=== PATIENT | female | born 1985 | race Caucasian/White ===

== ENCOUNTER 2022-06-20 10:00 | Inpatient (IN) ==
[2022-06-20] MEDS ORDERED: SODIUM CHLORIDE 0.9% 1000ML 1,000 ML IV ONE ×2 (10:11→10:30)
[2022-06-20] MEDS ORDERED: FAMOTIDINE 20MG IV PUSH 20 MG/5 ML SYR IV STA (10:11)
--- NOTE | 2022-06-20 10:15 | Emergency Department Note ---
Impression & Plan Hypertensive emergency, Elevated troponin, Acute dehydration, Dermatitis of face ED Provider Note Name: YOHANNES NICHOLS Age: 36 Sex: F Arrives Via: Walk-In Informant: Patient ED Provider: Tad Florian MD Chief Complaint: Allergic reaction Impression: As per impressions above Medical Decision Making: Healthy 36-year-old female arrives for evaluation of reported allergic reaction. Patient states that she used a facial cream about a week ago and had a significant facial allergic reaction. She was started on a steroid symptoms got better which she finished about a day ago. Symptoms seem to return again today with lip swelling. She taken Benadryl and it mostly resolved. She was seen at urgent care who advised she come to the ER for evaluation. Rash is much like a dermatitis and has no current lip swelling but she is quite dehydrated by examination. She is also noted to be significantly tachycardic and hypertensive. She was given 2 L normal saline for the heart rate and came to the 120s from the 150s. She was also given 2 rounds of labetalol 10 mg IV for blood pressure greater than 200. Blood pressure did come down to 190 which is roughly 20% of highest blood pressure. At this point labs that started returning which shows a moderately elevated troponin. EKG is unremarkable other than she is tachycardic. I suspect that hypertension tachycardia may be steroid related however with the mildly bumped troponin patient follow-up available as she is from out of town I do not think that discharging at this point would be safe. Hospitalist was consulted for further management. Given she has no current significant allergic findings we will hold off on steroids until evaluated by hospitalist for further input. As for the elevated troponin she is completely asymptomatic from a chest heart lung perspective I do not feel that getting a CT angio would be indicated at this time nor is her indication for starting heparin. Triage/Nursing Notes reviewed by Me Differentials:Allergic reaction, dermatitis, cellulitis, hypertensive emergency, cardiomyopathy, congestive failure, palpitations, a flutter/A-fib amongst many other pathologies considered Vital Signs: reviewed and remarkable for tachycardia and hypertension Interventions: 2 L normal saline IV, Pepcid IV, Bentyl 10 mg IV x2 Labs:Reviewed and remarkable for mildly elevated troponin EKG:Home-improvement interpretation. Indication palpitations. Sinus tachycardia at 137 bpm QTc of 456. There is no ectopy nor ischemia. No previous for comparison Cardiac/Tele Monitoring: Cardiac Monitoring: An Order was placed for continuous cardiac monitoring. The monitor shows a rate of 120 with a sinus tach rhythm. Consults:Dr Jonny Bernal hospitalist Plan: Disposition:Hospitalization. Condition: Good History of Present Illness:36-year-old female arrives for evaluation of allergic reaction. Patient with a history of having used a facial cream little over a week ago and then having allergic localized reaction. She been on steroids which she stopped about 2 days ago. Notes worsening hives this morning. Was seen at urgent care who advised to come to the ER. Patient did have facial swelling and lip swelling for which she had taken Benadryl prior to arrival. She notes lip swelling is already improving. She does feel bit weak and tremulous. Denies any chest pain, shortness of breath, syncope, abdominal pain, nausea, vomiting, leg swelling, calf pain or other concerning signs or symptoms denies any history of DVT or PE. She did recently travel and is on a control. No family history of DVT or PE. Past History:None Home Medications:Birthcontrol Allergies:nkda Vitals:Blood Pressure: 231/140, Pulse 150, RR 20, T 37.2C, O2 98% on RA Physical Exam: GENERAL: Patient is anxious appearing and in mild distress. EYES: No scleral icterus, unremarkable pupils. ENT: Mucous membranes moist, no nasal congestion. NECK: No masses appreciated, nomeningismus, trachea is midline. RESPIRATORY: No dyspnea. Clear to auscultation and equal bilaterally. No wheeze, no rhonchi. CARDIOVASCULAR: Tachy.No murmurs, rubs, gallops appreciated. GASTROINTESTINAL: Abdomen soft, non-tender, no peritonitis.Bowel sounds positive.No masses appreciated. BACK: No midline tenderness, no CVA tenderness EXTREMITIES: Normal motion all extremities, no cyanosis, no edema. NEUROLOGIC: Alert and oriented, no acute motor or sensory deficits, no focal weakness, cranial nerves grossly intact. SKIN: No rash, no jaundice, no diaphoresis. Hives over face with dry cracked lips. PSYCH: Appropriate GCS: 15 ED Course: Times/Reassessments: Heart rate did start improving though remains significantly hypertensive. Agreeable to hospitalization Tad Florian MD Past Med/Surg History Medical History (Updated 06/20/22 @ 14:50 by Tata Diaz MD, PhD) LVH (left ventricular hypertrophy) No significant past medical history Surgical History (Updated 06/20/22 @ 13:12 by Ghislaine Lee PA-C) History of wisdom tooth extraction Family History (Updated 06/20/22 @ 13:13 by Ghislaine Lee PA-C) Family/Other No problems noted. Father Hypertension Social History (Updated 06/20/22 @ 13:13 by Ghislaine Lee PA-C) Smoking Status: Former smoker Hx Alcohol Use: Yes Alcohol Intake Frequency: Monthly or Less Hx Substance Use: No Preferred Language: Emir[place] Feels Safe at Home: Yes Allergies Allergies Allergy/AdvReac Type Severity Reaction Status Date / Time shellfish derived Allergy mouth Verified 06/20/22 13:11 tingling Home Meds Home Medications Medication Instructions Recorded Confirmed diphenhydramine HCl 25 mg tablet 25 mg PO TID PRN Allergies 06/20/22 06/20/22 levonorgestrel 0.15 mg-ethinyl 1 tab PO DAILY 06/20/22 06/20/22 estradiol 0.03 mg tablet (Altavera (28)) Results & Data (ED) Vital Signs Vital Signs - 24 hr 06/20/22 10:06 06/20/22 10:30 06/20/22 10:28 Temperature 37.2 C Temperature Source Oral Pulse Rate 157 H 128 H Pulse Rate [Apical] 124 H Respiratory Rate 22 17 Respiratory Effort / Characteristics Non-Labored Spontaneous Non-Labored Spontaneous Respiratory Depth Normal Normal Blood Pressure 231/148 H Blood Pressure [Right Arm] 193/162 H Blood Pressure Mean 175 Blood Pressure Mean [Right Arm] 172 Pulse Oximetry 100 97 Oxygen Delivery Method Room Air Room Air Sepsis New/Unexplained Change in Mental Status N/A Sepsis Action Taken by Nursing No Action Required 06/20/22 11:34 06/20/22 12:24 06/20/22 12:44 Temperature Temperature Source Pulse Rate Pulse Rate [Apical] 118 H 112 H 113 H Respiratory Rate 18 16 18 Respiratory Effort / Characteristics Non-Labored Respiratory Depth Normal Blood Pressure Blood Pressure [Right Arm] 201/136 H 180/135 H 198/135 H Blood Pressure Mean Blood Pressure Mean [Right Arm] 157 150 156 Pulse Oximetry 95 96 96 Oxygen Delivery Method Room Air Room Air Sepsis New/Unexplained Change in Mental Status Sepsis Action Taken by Nursing 06/20/22 13:37 06/20/22 14:31 Temperature Temperature Source Pulse Rate 85 Pulse Rate [Apical] 117 H Respiratory Rate 18 Respiratory Effort / Characteristics Non-Labored Respiratory Depth Normal Blood Pressure Blood Pressure [Right Arm] 194/121 H Blood Pressure Mean Blood Pressure Mean [Right Arm] 145 Pulse Oximetry 98 Oxygen Delivery Method Room Air Sepsis New/Unexplained Change in Mental Status Sepsis Action Taken by Nursing Laboratory Data 06/20/22 10:18 06/20/22 10:18 Lab Results 06/20/22 06/20/22 06/20/22 Range/Units 10:18 10:18 10:18 WBC 11.08 H (4.8-10.8) K/ul RBC 5.21 (4.20-5.40) M/uL Hgb 16.1 H (12.0-16.0) g/dl Hct 45.9 (37.0-47.0) % MCV 88.1 (80.0-100.0) fL MCH 30.9 (25.0-34.0) pg MCHC 35.1 (32.0-36.0) g/dL RDW Std Deviation 38.7 (36.4-46.3) fL RDW Coeff of [place] 11.9 (11.5-14.5) % Plt Count 274 (130-400) K/uL MPV 11.2 (9.4-12.4) fL Immature Gran % (Auto) 0.5 % Neut % (Auto) 66.3 % Lymph % (Auto) 26.6 % Ogle % (Auto) 5.4 % Eos % (Auto) 0.6 % Baso % (Auto) 0.6 % Neut # (Auto) 7.34 H (1.40-6.50) K/uL Lymph # (Auto) 2.95 (1.2-3.4) K/uL Ogle # (Auto) 0.60 H (0.11-0.59) K/uL Eos # (Auto) 0.07 (0-0.50) K/uL Baso # (Auto) 0.07 (0-0.2) K/uL Immature Gran # (Auto) 0.05 (0.01-0.20) K/uL Sodium 138 (136-145) mmol/L Potassium 3.5 (3.5-5.1) mmol/L Chloride 102 (98-107) mmol/L Carbon Dioxide 23 (21-32) mmol/L Anion Gap 13 H (3-11) BUN 9 (6-23) mg/dl Creatinine 0.71 (0.6-1.2) mg/dl Est Cr Clr Drug Dosing 154.7 ml/min Est GFR ( Amer) 128.8 ml/min Est GFR (Non-Af Amer) 111.1 ml/min BUN/Creatinine Ratio 12.7 (10-20) Glucose 233 H (70-99(Fasting)) mg/dl Calcium 9.3 (8.6-10.3) mg/dl Magnesium 1.8 (1.7-2.4) mg/dl Total Bilirubin 1.0 (0.2-1.0) mg/dl Direct Bilirubin 0.2 (0-0.2) mg/dl AST 17 (13-39) U/L ALT 23 (7-52) U/L Alkaline Phosphatase 71 (34-104) U/L Troponin I High Sens 23.9 H (0-14) pg/ml Total Protein 7.3 (6.0-8.3) gm/dl Albumin 4.3 (3.4-5.0) gm/dl TSH 0.577 (0.300-4.500) uIu/ml Urine Color Urine Appearance (Clear) Urine pH (4.5-7.5) Ur Specific [place] (1.000-1.030) Urine Protein (Negative) Urine Glucose (UA) (Negative) Urine Ketones (Negative) Urine Blood (Negative) Urine Nitrite (Negative) Urine Bilirubin (Negative) Urine Urobilinogen (Negative) Ur Leukocyte Esterase (Negative) Urine WBC (Auto) (0-5) /hpf Urine RBC (Auto) (0-4) /hpf U Hyaline Cast (Auto) (0-5) /lpf U Epithel Cells (Auto) (0-5) /lpf Urine Bacteria (Auto) (Negative) Urine Test (Negative) SARS-CoV-2, RNA, NAAT (NEGATIVE) 06/20/22 06/20/22 06/20/22 Range/Units 11:56 11:56 13:42 WBC (4.8-10.8) K/ul RBC (4.20-5.40) M/uL Hgb (12.0-16.0) g/dl Hct (37.0-47.0) % MCV (80.0-100.0) fL MCH (25.0-34.0) pg MCHC (32.0-36.0) g/dL RDW Std Deviation (36.4-46.3) fL RDW Coeff of [place] (11.5-14.5) % Plt Count (130-400) K/uL MPV (9.4-12.4) fL Immature Gran % (Auto) % Neut % (Auto) % Lymph % (Auto) % Ogle % (Auto) % Eos % (Auto) % Baso % (Auto) % Neut # (Auto) (1.40-6.50) K/uL Lymph # (Auto) (1.2-3.4) K/uL Ogle # (Auto) (0.11-0.59) K/uL Eos # (Auto) (0-0.50) K/uL Baso # (Auto) (0-0.2) K/uL Immature Gran # (Auto) (0.01-0.20) K/uL Sodium (136-145) mmol/L Potassium (3.5-5.1) mmol/L Chloride (98-107) mmol/L Carbon Dioxide (21-32) mmol/L Anion Gap (3-11) BUN (6-23) mg/dl Creatinine (0.6-1.2) mg/dl Est Cr Clr Drug Dosing ml/min Est GFR ( Amer) ml/min Est GFR (Non-Af Amer) ml/min BUN/Creatinine Ratio (10-20) Glucose (70-99(Fasting)) mg/dl Calcium (8.6-10.3) mg/dl Magnesium (1.7-2.4) mg/dl Total Bilirubin (0.2-1.0) mg/dl Direct Bilirubin (0-0.2) mg/dl AST (13-39) U/L ALT (7-52) U/L Alkaline Phosphatase (34-104) U/L Troponin I High Sens (0-14) pg/ml Total Protein (6.0-8.3) gm/dl Albumin (3.4-5.0) gm/dl TSH (0.300-4.500) uIu/ml Urine Color Yellow Urine Appearance Clear (Clear) Urine pH 6.5 (4.5-7.5) Ur Specific [place] 1.011 (1.000-1.030) Urine Protein Negative (Negative) Urine Glucose (UA) 1+ H (Negative) Urine Ketones 2+ H (Negative) Urine Blood Trace H (Negative) Urine Nitrite Negative (Negative) Urine Bilirubin Negative (Negative) Urine Urobilinogen Negative (Negative) Ur Leukocyte Esterase Negative (Negative) Urine WBC (Auto) 1-5 (0-5) /hpf Urine RBC (Auto) 0-4 (0-4) /hpf U Hyaline Cast (Auto) 1-5 (0-5) /lpf U Epithel Cells (Auto) 20-30 H (0-5) /lpf Urine Bacteria (Auto) Negative (Negative) Urine Test Negative (Negative) SARS-CoV-2, RNA, NAAT NEGATIVE (NEGATIVE) Administered Medications Discontinued Medications Sodium Chloride (Nss 1000ml) 1,000 mls @ 999 mls/hr IV .Q1H1M ONE Stop: 06/20/22 11:11 Last Infusion: 06/20/22 11:25 Dose: 0 mls/hr Documented By: Admin: 06/20/22 10:25 Dose: 999 mls/hr Documented By: MIGUE Famotidine (Pepcid 20mg Iv Push) 20 mg in 5 mls @ 2.5 mls/min IV NOW STA Stop: 06/20/22 10:12 Last Admin: 06/20/22 10:25 Dose: 2.5 mls/min Documented By: MIGUE Sodium Chloride (Nss 1000ml) 1,000 mls @ 999 mls/hr IV .Q1H1M ONE Stop: 06/20/22 11:30 Last Infusion: 06/20/22 12:52 Dose: 0 mls/hr Documented By: Admin: 06/20/22 11:30 Dose: 999 mls/hr Documented By: THIERNO Labetalol HCl (Labetalol Hcl Iv 5 Mg/Ml 20ml) 10 mg IV NOW STA Stop: 06/20/22 11:23 Last Admin: 06/20/22 11:29 Dose: 10 mg Documented By: THIERNO Co-signed By: CONSTANTIN Labetalol HCl (Labetalol Hcl Iv 5 Mg/Ml 20ml) 10 mg IV NOW STA Stop: 06/20/22 11:56 Last Admin: 06/20/22 12:04 Dose: 10 mg Documented By: THIERNO Co-signed By: DAVID Nitroglycerin (Nitroglycerin 2% Ointment 30gm Tube) 1 inch EXT NOW ONE Stop: 06/20/22 12:57 Last Admin: 06/20/22 13:33 Dose: 1 inch Documented By: IDRIS Discharge Plan Visit Data Chief Complaint: Allergic Reaction Stated Complaint: ALLERGIC REACTION ED Provider: Tad Florian Discharge Problem: Hypertensive emergency, Elevated troponin, Acute dehydration, Dermatitis of face Forms Stand Alone Forms: [facility] Prescriptions Prescriptions: No Action levonorgestrel-ethinyl estrad [Altavera (28)] 0.15-0.03 mg tablet 1 tab PO DAILY diphenhydramine HCl 25 mg Tablet 25 mg PO TID PRN (Reason: Allergies) Referrals Referrals: PCP,NO [Primary Care Provider] -
[2022-06-20 10:51] LABS: Basophils # (auto) 0.07 K/uL (0-0.2); Basophils % (auto) 0.6 %; Eosinophils # (auto) 0.07 K/uL (0-0.50); Eosinophils % (auto) 0.6 %; Hematocrit (blood only) 45.9 % (37.0-47.0); Hemoglobin 16.1 g/dl (12.0-16.0); Immature Granulocytes # (auto) 0.05 K/uL (0.01-0.20); Immature Granulocytes % (auto) 0.5 %; Lymphocytes # (auto) 2.95 K/uL (1.2-3.4); Lymphocytes % (auto) 26.6 %; Mean Corpuscular Hemoglobin 30.9 pg (25.0-34.0); Mean Corpuscular Hgb Conc 35.1 g/dL (32.0-36.0); Mean Corpuscular Volume 88.1 fL (80.0-100.0); Mean Platelet Volume 11.2 fL (9.4-12.4); Monocytes % (auto) 5.4 %; Neutrophils # (auto) 7.34 K/uL (1.40-6.50); Neutrophils % (auto) 66.3 %; Platelet Count 274 K/uL (130-400); RDW Coefficient of Variation 11.9 % (11.5-14.5); RDW Standard Deviation 38.7 fL (36.4-46.3); Red Blood Count 5.21 M/uL (4.20-5.40); White Blood Count 11.08 K/ul (4.8-10.8)
[2022-06-20 11:06] LABS: Albumin Level 4.3 gm/dl (3.4-5.0); BUN Creatinine Ratio 12.7 (10-20); Bilirubin Direct 0.2 mg/dl (0-0.2); Calcium 9.3 mg/dl (8.6-10.3); Creatinine Clr Calc Pharmacy 154.7 ml/min; Est GFR (African American) 128.8 ml/min; Est GFR (Non-African American) 111.1 ml/min; Magnesium 1.8 mg/dl (1.7-2.4); Potassium 3.5 mmol/L (3.5-5.1); Total Protein 7.3 gm/dl (6.0-8.3)
[2022-06-20 11:11] LABS: Troponin I High Sensitivity 23.9 pg/ml (0-14)
[2022-06-20] MEDS ORDERED: LABETALOL HCL IV 5 MG/ML 20ML IV STA ×2 (11:22→11:55)
--- NOTE | 2022-06-20 12:21 | History & Physical Report ---
Date of Service June 20, 2022 Assessment & Plan (1) Hypertensive urgency: (2) Sinus tachycardia: (3) Elevated troponin: Plan: Patient is 36-year-old female without significant past medical history presented to ER with complaint of rash to face. In ER patient afebrile, P157, R: 22, BP 231/148, 100% on room air. Initial high-sensitivity troponin: 23.9. EKG sinus tachycardia, rate 137, signs of LVH, no ST elevation noted. UA: trace blood, 2+ketones (pt menstruating) Denies headache, dizziness, chest pain, shortness of breath. No prior diagnosed hypertension In ER given to L NSS, total 20 mg IV labetalol with repeat BP 198/135, pulse 113 ? Demand ischemia secondary to tachycardia, hypertension ? Possible undiagnosed underlying HTN Admit to telemetry Repeat EKG in am Trend troponin Echo EKG in am Nitropaste Labetalol IVas needed Monitor BP, likely will need further antihypertensive agents. May avoid KRYSTA for now since pt already has recent lip swelling Cardiology consult Nephrology consult CBC, BMP, lipid panel in am (4) Urticaria: Plan: 2 weeks ago with urticarial type rash thought secondary from new facial cream & was treated with 5 days of prednisone, cetirizine, Pepcid with relief. Finished prednisone 6 days ago. Rash to face started again last night, awoke this morning with lip swelling improved with one dose of oral Benadryl In ER given IV Pepcid Denies wheezing, shortness of breath, chest pain, tongue edema, dysphagia, nausea, vomiting, abdominal pain Start Solu-Medrol 60 mg IV, Pepcid IV, Benadryl IV Monitor Has appointment with fish conservationist next week in [place], [place] (near patient's home) (5) Hyperglycemia: Plan: Random BSG in ER is 233 No prior diagnosed diabetes. Recently treated with prednisone. NovoLog sliding scale per protocol. Monitor BSG's may need to further adjust or add basal insulin A1c in a.m. May need natural resources extension educator consult (6) Obesity: Plan: BMI: 43 DVT Prophylaxis SCDs Lovenox Pt was seen and care coordinated with Dr Fuller. See addendum I spent a total of 78 minutes reviewing notes, labs, medication, coordinating, documenting and providing care for this patient excluding time spent in the performance of separately billed services. History of Present Illness Chief Complaint: Hives Primary Care Provider: NO PCP Patient is 36-year-old female without significant past medical history presented to ER with complaint of rash to face. Patient states 2 weeks ago had sudden onset of rash and hives to face and neck. She had started a new face cream and thought it may be secondary to that. She was seen in urgent care at that time and was placed on prednisone 40 mg x 5 days, Pepcid, cetirizine. She states she slowly had resolution of facial rash. Patient reports 1 week ago was eating at a restaurant when had onset of tingling to her mouth. She took 1 Benadryl with resolution. Denies any other facial swelling, lip swelling, tongue swelling, dysphagia, shortness of breath, wheezing, nausea, vomiting, abdominal pain at the time. She thought maybe there was a cross contamination with shellfish as she has had similar reactions from shellfish in the past. She finished the prednisone course 6 days ago. Has not used the new facial cream. Last night started with some mild itching and rash to face. She took 2 Benadryl and went to bed. When she woke up this morning had increased rash to face and neck and her lips were swollen. She took a Benadryl this morning with improvement of lip swelling. Rash persists. Denies any significant pruritus or pain with rash. Reports her face feels "tight". Denies shortness of breath, wheezing, tongue swelling, dysphagia, dizziness. She is in town for concert at the [facility] today. Was seen at urgent care center this morning and was referred to ER. Denies any other new medications, OTC medications or supplements, or other skin products or new foods. Patient reports has an appointment with an fish conservationist next week in [facility]. Denies fever/chills, diaphoresis, N/V/D/C, JUAREZ, syncope, vision changes, neck pain, CP, SOB, orthopnea, palpitations, cough, sore throat, choking, otalgia, rhinorrhea, abdominal pain, paresthesias, weakness, extremity weakness, extremity edema, rashes, dysuria, urinary frequency, hematuria. In ER patient found to be tachycardic, hypertensive. She was given to L NSS, IV famotidine. High-sensitivity troponin: 23.9. Patient being admitted for further evaluation and observation. Allergies Allergy/AdvReac Type Severity Reaction Status Date / Time shellfish derived Allergy mouth Verified 06/20/22 13:11 tingling Home Medications Medication Instructions Recorded Confirmed Type diphenhydramine HCl 25 mg tablet 25 mg PO TID PRN Allergies 06/20/22 06/20/22 History levonorgestrel 0.15 mg-ethinyl 1 tab PO DAILY 06/20/22 06/20/22 History estradiol 0.03 mg tablet (Altavera (28)) Past Med/Surg History Medical History (Updated 06/20/22 @ 18:13 by Tata Diaz MD, PhD) Hypertensive urgency Obesity Surgical History (Updated 06/20/22 @ 13:12 by Ghislaine Lee PA-C) History of wisdom tooth extraction Family History (Updated 06/20/22 @ 13:13 by Ghislaine Lee PA-C) Family/Other No problems noted. Father Hypertension Social History (Updated 06/20/22 @ 13:13 by Ghislaine Lee PA-C) Smoking Status: Former smoker Hx Alcohol Use: Yes Alcohol Intake Frequency: Monthly or Less Hx Substance Use: No Preferred Language: Ukrainian Activities Attendant Required: No Beliefs That Will Affect Care: None Current Living Situation: Family Feels Safe at Home: Yes Safety Concerns: Feels Safe At This Time Review of Systems Review of Systems: All systems reviewed & are unremarkable except as noted in HPI & below Physical Exam Physical Exam: General: no acute distress, overweight Head: normocephalic, atraumatic Eyes: PERRL, EOM's intact, conjunctiva non-injected, anicteric ENT: normal inspection external ears, nose, mucous membranes moist, no uvula edema, no tongue edema Face: +erythematous raised urticarial rash to forehead and nose, cheeks, chin, neck. Lips slightly edematous, dry and cracked Neck: supple, trachea midline Lungs: clear, no respiratory distress, no wheezing/rhonchi/rales CV: Tachycardia, rate 110, regular rhythm, no murmur, no pretibial edema Abd: Protuberant, normal BS, soft, non-tender Ext: no cyanosis, no calf tenderness Neuro: A&O x 3, no focal deficits noted, normal affect Skin: As above in face, otherwise warm, dry Results & Data Results & Data Vital Signs (Past 12 Hours) Vital Signs Temp Pulse Pulse Resp BP BP Pulse Ox 06/20/22 11:34 118 H 18 201/136 H 95 06/20/22 10:28 128 H 06/20/22 10:30 124 H 17 193/162 H 97 06/20/22 10:06 37.2 C 157 H 22 231/148 H 100 O2 Del Method 06/20/22 11:34 Room Air 06/20/22 10:28 06/20/22 10:30 Room Air 06/20/22 10:06 Room Air Laboratory Results Short CBC 06/20/22 Range/Units 10:18 WBC 11.08 H (4.8-10.8) K/ul Hgb 16.1 H (12.0-16.0) g/dl Hct 45.9 (37.0-47.0) % Plt Count 274 (130-400) K/uL BMP 06/20/22 10:18 Sodium 138 Potassium 3.5 Chloride 102 Carbon Dioxide 23 BUN 9 Creatinine 0.71 Glucose 233 H Calcium 9.3 Liver Function 06/20/22 Range/Units 10:18 Total Bilirubin 1.0 (0.2-1.0) mg/dl Direct Bilirubin 0.2 (0-0.2) mg/dl AST 17 (13-39) U/L ALT 23 (7-52) U/L Alkaline Phosphatase 71 (34-104) U/L Albumin 4.3 (3.4-5.0) gm/dl Urine 06/20/22 Range/Units 11:56 Urine Color Yellow Urine Appearance Clear (Clear) Urine pH 6.5 (4.5-7.5) Ur Specific [place] 1.011 (1.000-1.030) Urine Protein Negative (Negative) Urine Glucose (UA) 1+ H (Negative) Supervising Physician Co-Signing Physician Notes Care coordinated with Ghislaine Lee PA-C. Agree with to note. Patient seen and examined. Please refer to her notes for full details. Vital signs reviewed. Physical exam: General exam: Alert and oriented. Not in acute distress. CVS: S1 and S2 heard, regular rate and rhythm, no murmurs. RS: Clear to auscultation, no wheezing or crackles. ABD: Soft, bowel sounds present, nontender, no distention. WOOD [employer]I [employer]ER: Nonfocal. Skin Erythematous rash seen on the face EXT: No edema, no erythema. Labs: Reviewed. Assessment and plan: 45F presents with rash on the face. PAtient seems to had rah couple of weeks after applying a facial cream. resolved with a course of prednisone and pepcid and claritin. Again after that had tingling sensation in mouth resolved with benadryl( s[place] shell fish allergy). Last night was again having itching on the face and took benadryl but woke u in the morning agin with facial rash and lip swelling. Took benadryl and came to ER. Lip swelling improved. In ER found to have elevated BP. Denies any chest pain or sob . No leg swelling. No Nausea. Afebrile. Vision is ok. Alert and oriented. Allergic reaction etiology ? started on iv steroid, Benadryl and pepcid continue steroid, Zyrtec, pepcid and iv benadry prn patient has appointment with fish conservationist next week HTN urgency placed on nitro paste and iv labetalol prn Nephrology started on po labetolol and procardia echo seems ok Mild elevated troponin patinet asymptomatic will f/u serial ce echo ok patient is on control pills for last two years will f/u ct chest PE study cardio consulted Other diagnosis and plan of care as per RENETTA Estevez MD.
[2022-06-20 12:37] LABS: Pregnancy Test, Urine Negative (Negative)
--- NOTE | 2022-06-20 12:37 | Electrocardiogram Report ---
Test Reason : Blood Pressure : / mmHG Vent. Rate : 137 BPM Atrial Rate : 137 BPM P-R Int : 134 ms QRS Dur : 080 ms QT Int : 302 ms P-R-T Axes : 031 -35 068 degrees QTc Int : 456 ms Sinus tachycardia Possible Left atrial enlargement Left axis deviation Left ventricular hypertrophy Poor R wave progression, consider anterior SC vs. lead placement vs. LVH Abnormal ECG No previous ECGs available Confirmed by Will Christian ([id number]) on 06/20/2022 12:37:06 PM Referred By: REFERRED SELF Confirmed By:Will Christian
[2022-06-20 12:38] LABS: Appearance Urine Clear (Clear); Bacteria Urine Automated Negative (Negative); Bilirubin Urine Negative (Negative); Blood Urine Trace (Negative); Color Urine Yellow; Epithelial Cell Urine Auto 20-30 /lpf (0-5); Glucose Urine UA 1+ (Negative); Ketones Urine 2+ (Negative); Leukocyte Esterase Urine Negative (Negative); Nitrite Urine Negative (Negative); Protein Urine Negative (Negative); RBC Urine Automated 0-4 /hpf (0-4); Specific Gravity Urine 1.011 (1.000-1.030); Urobilinogen Urine Negative (Negative); pH Urine 6.5 (4.5-7.5)
[2022-06-20] MEDS ORDERED: NITROGLYCERIN 2% OINTMENT 30GM TUBE EXT ONE (12:56)
--- NOTE | 2022-06-20 14:56 | Nephrology Consultation ---
Date of Consultation June 20, 2022 Assessment & Plan (1) Hypertensive urgency: Goal blood pressure is MAP of about 100 for next hours/ day, assuming no evidence of acute end organ damage emerges which to-date is none; test negative. May be harder to control on obligate high dose steroids for the urticaria. TTE & troponins reassuring. with mild hypokalemia and HTN, aldosteronism comes to mind and could be evaluated as OP. secondary HTN w/u not indicated at this time. -Continue cardiac nurse -continue NTG paste >ordered tox screen >started labetalol 200 mg bid, first dose now -standing meds have hold parameter hold for MAP <110 >would avoid sandi/arb w/ lip swelling/urticaria already ongoigng in case of angioedema -had considered hctz but given potential need for IV contrast to evaluate PE will defer this -will also start nifedipine 10 mg daily first dose this evening, may take a few weeks to reach full force -avoid spironolactone so that she can have aldosteronism screen if indicated at home -avoid clonidine d/t complications of rebound HTN -could add prn hydralazine if needed -cont prn labetalol >ordered lipid profile for am; f/u A1c >daily bmp >note that her contraceptive can cause HTN as an adverse effect; see below re Altavera and consider alternative prior to d/c (2) Sinus tachycardia: persistent, though has only had a few doses of labetalol; asymptomatic; TSH wnl -continue labetalol >in pt with BMI >40 with recent road trip [place] nearing 37 years of age with persistent sinus tachycardia on altavera which has a black box warning that obese women have higher VTE risk reasonable to rule out PE and did d/w Dr Fuller >note also that altavera is contraindicated per black box warning in pt w/ BMI > 30 d/t this higher VTE risk > consider stopping medication prior to d/c -f/u cardiology recs History of Present Illness Reason for Consultation: Hypertensive urgency Requesting Physician: Dr. Fuller Attending Physician: Dr Fuller History of Present Illness 36-year-old female whom I am asked to evaluate for hypertensive urgency is under observation for same after presenting with same in the setting of recurrent urticarial facial rash and lip swelling. No significant past medical history apart from class III obesity and a shellfish allergy. Her only routine outpatient medication is an oral contraceptive. No routine NSAID use; uses Midol for JUAREZ occasionally. She does endorse of hx of situational HTN w/o formal dx of HTN from her last primary care encounter 1-2 years back. Reformed smoker. She is from the [facility] and is in town here for a concert. Approx 06/09 or 06/10 she developed a facial and neck rash. She was seen in urgent care in [place] and was placed on a 5-day course of prednisone with cetirizine with slow resolution. She did have a second rash outbreak, primarily as sore m outh, on 06/13 which she thought at the time might have been d/t cross contamination w/ shellfish at a restaurant where she goes often and usually eats same dishes. She finished prednisone 6 days back but last evening noted some mild itching and recurrent facial rash. She took 2 Benadryl and went to bed. This morning on waking her lips were swollen with increased rash on her face and neck. She took 1 Benadryl which improved the lip swelling and acute went to urgent care for evaluation with referral to the ER subsequently. She has an appointment next week in her hometown [facility] with an modeling analyst. Noted on arrival to be hypertensive with blood pressures in the 190s to 200s over 130s to 160s; also with sinus tachycardia in the 1 teens and 120s. Nitropaste was applied; she received 2 doses IV labetalol 10 mg w/ minimal effect. No airway compromise symptoms. No chest pain or shortness of breath no acute vision changes no loss of consciousness or confusion no focal numbness or weakness. no back pain. no cough, no edema. For the urticaria she is starting Solu-Medrol; noted in the ER to have random blood sugar 233 and being covered with sliding scale as well. test is negative. Allergies Allergy/AdvReac Type Severity Reaction Status Date / Time shellfish derived Allergy mouth Verified 06/20/22 13:11 tingling Home Medications Medication Instructions Recorded Confirmed Type diphenhydramine HCl 25 mg tablet 25 mg PO TID PRN Allergies 06/20/22 06/20/22 History levonorgestrel 0.15 mg-ethinyl 1 tab PO DAILY 06/20/22 06/20/22 History estradiol 0.03 mg tablet (Altavera (28)) Patient History Medical History (Updated 06/20/22 @ 18:13 by Tata Diaz MD, PhD) Hypertensive urgency Obesity Surgical History (Updated 06/20/22 @ 13:12 by Ghislaine Lee PA-C) History of wisdom tooth extraction Family History (Updated 06/20/22 @ 13:13 by Ghislaine Lee PA-C) Family/Other No problems noted. Father Hypertension Social History (Updated 06/20/22 @ 13:13 by Ghislaine Lee PA-C) Smoking Status: Former smoker Hx Alcohol Use: Yes Alcohol Intake Frequency: Monthly or Less Hx Substance Use: No Preferred Language: Tamazight Fingernail Sculpturer Required: No Beliefs That Will Affect Care: None Current Living Situation: Family Feels Safe at Home: Yes Safety Concerns: Feels Safe At This Time Review of Systems Review of Systems: All systems reviewed & are unremarkable except as noted in HPI & below Physical Exam Constitutional: well developed, well nourished and cooperative; no acute distress Eyes: EOM intact bilaterally ENMT: Ears: no external ear abnormality Nose: no external nose abnormality Mouth: + dry oral mucous membranes Neck: no nuchal rigidity Respiratory: normal respiratory effort Auscultation: + diminished lung sounds Cardiovascular: Rate/Rhythm: + tachycardic Extremities: normal capillary refill; no edema Gastrointestinal (Abdomen): Inspection/Auscultation: normal bowel sounds Percussion/Palpation: abdomen soft; abdomen nontender Musculoskeletal: Extremities: strength 5/5 throughout Skin: + rash (faint urticarial lower half of face ) Neurologic: tejeda, fluent speech, no tremor Psychiatric: Orientation: oriented x 3 Speech: normal rate/rhythm/volume of speech Results & Data Vital Signs (Past 12 Hours) Vital Signs Temp Pulse Pulse Resp BP BP Pulse Ox 06/20/22 14:31 85 06/20/22 13:37 117 H 18 194/121 H 98 06/20/22 12:44 113 H 18 198/135 H 96 06/20/22 12:24 112 H 16 180/135 H 96 06/20/22 11:34 118 H 18 201/136 H 95 06/20/22 10:28 128 H 06/20/22 10:30 124 H 17 193/162 H 97 06/20/22 10:06 37.2 C 157 H 22 231/148 H 100 O2 Del Method 06/20/22 14:31 06/20/22 13:37 Room Air 06/20/22 12:44 06/20/22 12:24 Room Air 06/20/22 11:34 Room Air 06/20/22 10:28 06/20/22 10:30 Room Air 06/20/22 10:06 Room Air Laboratory Results 06/20/22 10:18 06/20/22 10:18 UA reviewed (patient on menses) Diagnostic Findings ECG: Sinus tachycardia Possible Left atrial enlargement Left axis deviation Left ventricular hypertrophy Poor R wave progression, consider anterior IN vs. lead placement vs. LVH Abnormal ECG No previous ECGs available TTE > normal EF and wall thickness ; no WMA CXR w/o active disease
[2022-06-20] MEDS ORDERED: DEXTROSE 50% 50 ML SYRINGE IV PRN (15:13)
[2022-06-20] MEDS ORDERED: GLUCOSE 40% GEL 15 GM TUBE PO PRN (15:13)
[2022-06-20] MEDS ORDERED: GLUCAGON FOR INJ 1 MG VIAL SQ PRN (15:13)
[2022-06-20] MEDS ORDERED: POLYETHYLENE (MIRALAX) 17 GM PACK PO PRN (15:13)
[2022-06-20] MEDS ORDERED: ONDANSETRON INJ 2 MG/ML 2 ML VIAL IV PRN (15:13)
[2022-06-20] MEDS ORDERED: ACETAMINOPHEN 325 MG TAB PO PRN (15:13)
[2022-06-20] MEDS ORDERED: CARBOHYDRATES FOR HYPOGLYCEMIA PO PRN (15:13)
[2022-06-20] MEDS ORDERED: diphenhydrAMINE 50 MG/ML VIAL IV SCH (15:13)
[2022-06-20] MEDS ORDERED: methylPREDNISolone 125 MG/2 ML VIAL IV SCH (15:13)
[2022-06-20] MEDS ORDERED: LABETALOL HCL IV 5 MG/ML 20ML IV PRN (15:13)
[2022-06-20] MEDS ORDERED: GLUCOSE 10 TAB/TUBE PO PRN (15:13)
--- NOTE | 2022-06-20 15:35 | XRay Report ---
SINGLE VIEW CHEST CLINICAL HISTORY: Tachycardia. FINDINGS: An AP, portable, upright chest radiograph is obtained. No prior studies are available for c omparison at the time of dictation. The examination is degraded by portable technique and apical lord otic positioning. The cardiomediastinal silhouette is top normal for projection. The lungs and pleur al spaces are clear. No pneumothorax is seen. The bony thorax is grossly intact. IMPRESSION: No active disease in the chest. ACT 112: Negative or not required by law. Electronically signed by: Jesús Aviles M.D. 06/20/2022 3:34 PM
[2022-06-20] MEDS ORDERED: LABETALOL HCL 200 MG TAB PO STA (16:05)
[2022-06-20] MEDS ORDERED: POTASSIUM CHLORIDE CRTAB 20 MEQ TABCR PO ONE (16:06)
[2022-06-20] MEDS: methylPREDNISolone 60 MG in SYRINGE 0 ML IV SCH (16:07)
[2022-06-20] MEDS ORDERED: LABETALOL HCL 200 MG TAB PO SCH (16:15)
[2022-06-20] MEDS: INSULIN ASPART PER UNIT CHARGE SC SCH ×2 (17:02→20:38)
[2022-06-20] MEDS ORDERED: hydroCHLOROthiazide 25 MG TAB PO SCH (18:15)
[2022-06-20 18:47] LABS: Amphetamines+Metham, Urine Neg (Neg); Barbiturates, Urine Neg (Neg); Benzodiazepine, Urine Neg (Neg); Cocaine, Urine Neg (Neg); MDMA (Ecstacy), Urine Neg (Neg); Methadone, Urine Neg (Neg); Opiate, Urine Neg (Neg); Phencyclidine, Urine Neg (Neg)
[2022-06-20] MEDS ORDERED: OPTIRAY 320 500ml IV ONE (18:48)
[2022-06-20] MEDS ORDERED: methylPREDNISolone 40 MG in SYRINGE 0 ML IV ONE (19:00)
[2022-06-20] MEDS ORDERED: diphenhydrAMINE 50 MG/ML VIAL IV ONE (19:00)
--- NOTE | 2022-06-20 19:00 | CT Scan Report ---
CT ANGIOGRAM OF THE CHEST CLINICAL HISTORY: Tachycardia. COMPARISON STUDY: Chest x-ray dated 06/20/2022. TECHNIQUE: Following the IV administration of 116 cc of Optiray 320, CT angiogram of the chest was pe rformed from the upper abdomen to the thoracic inlet utilizing the pulmonary embolus protocol. Images are reviewed in the axial, sagittal, and coronal planes. 3-D MIPS images are created and assessed. I V contrast was administered without complication. A dose lowering technique was utilized adhering to the principles of ALARA. CT DOSE: 948.63 mGy.cm FINDINGS: Thyroid: Imaged portions of the thyroid gland are normal in size and attenuation. Thoracic aorta: The thoracic aorta is normal in caliber and demonstrates standard 3-vessel arch anato my. No dissection is seen. Pulmonary vasculature: The pulmonary trunk is normal in caliber. There are no filling defects identif ied in main, lobar, or segmental pulmonary branches to suggest pulmonary embolus. Heart: The heart is normal in size and without pericardial effusion. Lungs and pleural spaces: The lungs and pleural spaces are clear. The trachea and central airways are patent. Mediastinum: There is no mediastinal lymphadenopathy. [place]: Clear. Axillae: There is no axillary lymphadenopathy. Upper abdomen: There is a tiny hiatal hernia. Partially visualized upper abdominal viscera is otherwi se within normal limits. Skeletal structures: No lytic or blastic bony lesions are seen. IMPRESSION: 1. There is no evidence of pulmonary embolus in the main, lobar, or segmental pulmonary arteries. 2. The lungs are clear. ACT 112: Negative or not required by law. Electronically signed by: Jesús Aviles M.D. 06/20/2022 6:57 PM
[2022-06-20] MEDS: NIFEdipine 10 MG CAP PO SCH (19:22)
[2022-06-20] MEDS ORDERED: diphenhydrAMINE 50 MG/ML VIAL IV PRN (19:37)
[2022-06-20] MEDS: LANTUS PER UNIT CHARGE SQ SCH (20:38)
[2022-06-20] MEDS: POTASSIUM CHLORIDE CRTAB 20 MEQ TABCR PO SCH (20:40)
[2022-06-20] MEDS: LABETALOL HCL 200 MG TAB PO SCH (20:46)
[2022-06-20] MEDS: FAMOTIDINE 20 MG in SYRINGE 3 ML IV SCH (21:05)
[2022-06-20] MEDS: ENOXAPARIN INJ 40 MG/0.4 ML SYR SQ SCH (21:06)
[2022-06-21 07:23] LABS: Basophils # (auto) 0.02 K/uL (0-0.2); Basophils % (auto) 0.1 %; Hematocrit (blood only) 41.3 % (37.0-47.0); Hemoglobin 14.3 g/dl (12.0-16.0); Immature Granulocytes # (auto) 0.07 K/uL (0.01-0.20); Immature Granulocytes % (auto) 0.4 %; Lymphocytes # (auto) 1.69 K/uL (1.2-3.4); Lymphocytes % (auto) 10.8 %; Mean Corpuscular Hemoglobin 31.1 pg (25.0-34.0); Mean Corpuscular Hgb Conc 34.6 g/dL (32.0-36.0); Mean Corpuscular Volume 89.8 fL (80.0-100.0); Mean Platelet Volume 10.9 fL (9.4-12.4); Monocytes # (auto) 0.25 K/uL (0.11-0.59); Monocytes % (auto) 1.6 %; Neutrophils # (auto) 13.59 K/uL (1.40-6.50); Neutrophils % (auto) 87.1 %; Platelet Count 241 K/uL (130-400); RDW Coefficient of Variation 12.2 % (11.5-14.5); RDW Standard Deviation 40.1 fL (36.4-46.3); White Blood Count 15.62 K/ul (4.8-10.8)
[2022-06-21 07:42] LABS: BUN Creatinine Ratio 14.3 (10-20); Calcium 9.7 mg/dl (8.6-10.3); Chol HDL Ratio 3.4 (0-5); Creatinine Clr Calc Pharmacy 155.5 ml/min
[2022-06-21] MEDS: LANTUS PER UNIT CHARGE SQ SCH (07:55)
[2022-06-21] MEDS: INSULIN ASPART PER UNIT CHARGE SC SCH ×4 (07:55→20:33)
[2022-06-21] MEDS: ENOXAPARIN INJ 40 MG/0.4 ML SYR SQ SCH ×2 (07:59→20:33)
[2022-06-21] MEDS: CETIRIZINE HCL 10 MG TABLET PO SCH (07:59)
[2022-06-21] MEDS: methylPREDNISolone 60 MG in SYRINGE 0 ML IV SCH (07:59)
[2022-06-21] MEDS: NIFEdipine 10 MG CAP PO SCH (08:00)
[2022-06-21] MEDS: LABETALOL HCL 200 MG TAB PO SCH (08:00)
[2022-06-21] MEDS: POTASSIUM CHLORIDE CRTAB 20 MEQ TABCR PO SCH ×2 (08:06→20:34)
[2022-06-21] MEDS: FAMOTIDINE 20 MG in SYRINGE 3 ML IV SCH ×2 (08:07→20:33)
--- NOTE | 2022-06-21 11:43 | Electrocardiogram Report ---
Test Reason : Blood Pressure : / mmHG Vent. Rate : 118 BPM Atrial Rate : 118 BPM P-R Int : 140 ms QRS Dur : 082 ms QT Int : 330 ms P-R-T Axes : 024 -13 096 degrees QTc Int : 462 ms Sinus tachycardia Moderate voltage criteria for LVH, may be normal variant Cannot rule out Septal infarct , age undetermined Abnormal ECG When compared with ECG of 20-JUN-2022 10:16, Nonspecific T wave abnormality, worse in Lateral leads Confirmed by Will Christian ([id number]) on 06/21/2022 11:43:38 AM Referred By: REFERRED SELF Confirmed By:Will Christian
[2022-06-21 12:22] LABS: Estimated Average Glucose 214 mg/dl; Hemoglobin A1C 9.1 % (4.5-5.6)
[2022-06-21] MEDS ORDERED: PHARMACY GLYCEMIC MGMT CONSULT PRN (14:33)
--- NOTE | 2022-06-21 14:35 | Hospitalist Progress Note ---
Date of Service June 21, 2022 Assessment & Plan (1) Hypertensive urgency: (2) Sinus tachycardia: (3) Urticaria: Plan 36-year-old female with no significant PMH presented to the ED 06/20 with complaint of rash to face. Patient had facial rash and lip swelling noted on 08 of June after applying new lotion to face [patient has already discarded the lotion after she got the first facial rash] and was treated with steroid/Benadryl at urgent care. The rash came back again (on 13 of June) along with lip swelling after she had some fried food outside [concern for contamination with shellfish, patient has allergy to surface]. she was again treated at urgent care. She again had reoccurrence of facial rash and lip swelling on 20 of June after she had fried foods outside. She is being managed for the following: Hypertensive urgency: Sinus tachycardia: Elevated troponin/Demand ischemia: At presentation: BP 231/148, pulse 157. Troponin 23.9, flat trended. EKG with sinus tachycardia with rate 137, no acute ST or T changes noted. UA with trace blood and 2+ ketones [patient menstruating]. At presentation: Patient denied headache or dizziness or chest pain or shortness of breath. No prior diagnosis of hypertension and not on any home medication regarding same. 06/20 echo with EF of 60 to 65%, normal LV chamber size and wall thickness, no segmental left ventricular wall motion abnormalities. Cardiology and nephrology on board, appreciate recommendation. Patient currently on labetalol as needed, labetalol as scheduled, nifedipine Blood pressure still running high and patient with sinus tach, no chest pain or palpitation Continue with telemetry monitoring Urticaria/hives: Rash to face and lip swelling started with application of new cream, then reappeared again after eating fried food outside twice [see above]. Of note, patient has allergies to shellfish. Continue with Solu-Medrol, famotidine, and Zyrtec. Patient reports improving rash/itchiness and improving lip swelling. Patient will need epinephrine prescription at discharge. States that she has appointment with air defense artillery senior sergeant next week in [place], [place] (near patient's home) - pt advised to keep up that appointment. Newly diagnosed diabetes: Patient with blood sugar 233 at presentation, A1c of 9.1. No prior diagnosis of diabetes. data management consultant consult. Pharmacy c onsult/sliding scale insulin. Obesity: BMI 43, counseled about weight loss/regular exercise/following healthy diet. DVT Prophylaxis: Lovenox Admission and Anticipated Discharge Date Admission Date: June 20, 2022 Subjective Patient seen and examined at bedside as a follow-up of hypertensive urgency, sinus tachycardia, elevated troponin, new onset diabetes, urticaria. Patient was lying in bed, on room air, reports no new acute event overnight, reports improving lip swelling, denies any itching, reports improving facial rash, denies headache or dizziness or chest pain or palpitation or shortness of breath or viral-like illness in the recent past. Physical Exam Physical Exam: GENERAL: Alert and oriented x3. NAD, on RA. Obesity Class III. HEENT: No pallor, no icterus. Pupils equal, round and reactive to light. Oral mucosa moist. Face: +erythematous raised urticarial rash to forehead and nose, cheeks, chin, neck. Lips swelling improving. NECK: No JVD, no neck masses. HEART: S1 and S2 heard. Regular rate and rhythm/tachycardia. No murmur, no gallop. RESPIRATORY SYSTEM: Normal AP diameter. No accessory muscle use. No wheezing, no crackles. ABDOMEN: Soft, bowel sounds present, nontender, no distention. CENTRAL NERVOUS SYSTEM: No facial droop. Speech is clear. Obeys simple commands. Moves extremities. EXTREMITIES: No edema, no erythema seen. Results & Data Results & Data Vital Signs (Past 12 Hours) Vital Signs Temp Pulse Pulse Resp BP Pulse Ox O2 Del Method 06/21/22 11:44 36.7 C 115 H 16 173/108 H 96 Room Air 06/21/22 07:53 36.6 C 117 H 14 158/99 H 97 Room Air 06/21/22 07:19 120 H 06/21/22 02:56 36.6 C 115 H 19 155/96 H 95 Room Air
[2022-06-21] MEDS ORDERED: LANTUS PER UNIT CHARGE SQ ONE ×2 (14:45→15:15)
--- NOTE | 2022-06-21 15:07 | Pharmacy Report ---
Pharmacy Glycemic Short Note 2 - Date of Service June 21, 2022 - Glycemic Short BSG Results (Last 24 hours): 06/20/22 06/20/22 06/21/22 16:07 19:57 07:04 Glucose 287 H POC Glucose 237 H 229 H 06/21/22 06/21/22 07:35 11:21 Glucose POC Glucose 270 H 321 H* OUTPATIENT ANTIDIABETIC REGIMEN: * n/a * A1c ~9% ASSESSMENT: * 36 year old admitted with htn urgency. BSGs elevated on arrival, A1c indicating diabetes. No previous dx of diabetes per notes. Patient received total of 21 units of insulin yesterday, of which 5 units were basal insulin * Fasting elevated at 270 mg/dL - patient received solumedrol yesterday, continued today. Last BSG was >300 * Will add Lantus 25 units x 1 now in addition to the 5 units already this AM PLAN FOR INPATIENT GLYCEMIC CONTROL: * Hold outpatient oral diabetes medications * Basal insulin * Lantus 5 units + 25 units x 1 * Bolus insulin * NovoLog per scale ACHS or Q6hrs while NPO * Goal Range: Low 110 mg/dL - High 140 mg/dL * Correction Factor: 15 mg/dL/unit * Nutritional / Prandial insulin per carb ratio of 1 unit per 4 grams CHO consumed
--- NOTE | 2022-06-21 15:16 | Cardiology Consultation ---
Date of Consultation June 21, 2022 Assessment & Plan (1) Hypertensive urgency: (2) Sinus tachycardia: (3) Elevated troponin: (4) Urticaria: (5) Hyperglycemia: (6) Obesity: Plan The patient was counseled that she is in sinus rhythm which is likely due to her ongoing steroids and discomfort from her rash No arrhythmias on telemetry Structurally normal heart on echocardiogram Minimal troponin elevation is insignificant in the setting of hypertensive urgency and sinus tachycardia Already seen by our nephrology colleagues were treating her blood pressure No further cardiac test intervention necessary at this time History of Present Illness Reason for Consultation: Sinus tachycardia Requesting Physician: [facility] hospitalist group Attending Physician: Sonal Alvarado MD History of Present Illness It was my pleasure to see Ms. Nieves in cardiac consultation today June 21, 2022. She is a very pleasant 36-year-old woman who lives in [facility] and is only in the area to attend a concert. She presented to [facility] on 06/20/2022 with complaints of lip swelling and worsening rash on her face and neck. She was recently started on prednisone and antibiotics as an outpatient for this rash. Upon arrival to the emergency department she was found to be significantly hypertensive and tachycardic with sinus tachycardia. From a cardiac standpoint she denies any cardiac complaints of chest pain, shortness of breath, palpitations, lightheadedness, dizziness or syncope. Allergies Allergy/AdvReac Type Severity Reaction Status Date / Time shellfish derived Allergy mouth Verified 06/20/22 13:11 tingling Home Medications Medication Instructions Recorded Confirmed Type diphenhydramine HCl 25 mg tablet 25 mg PO TID PRN Allergies 06/20/22 06/20/22 History levonorgestrel 0.15 mg-ethinyl 1 tab PO DAILY 06/20/22 06/20/22 History estradiol 0.03 mg tablet (Altavera (28)) Patient History Medical History Hypertensive urgency Obesity Surgical History History of wisdom tooth extraction Family History Family/Other No problems noted. Father Hypertension Social History Smoking Status: Former smoker Hx Alcohol Use: Yes Alcohol Intake Frequency: Monthly or Less Hx Substance Use: No Preferred Language: Danish Sap Integration Architect Required: No Beliefs That Will Affect Care: None Current Living Situation: Family Feels Safe at Home: Yes Safety Concerns: Feels Safe At This Time Review of Systems Review of Systems: All systems reviewed & are unremarkable except as noted in HPI & below Physical Exam Physical Exam: Physical Exam: General: Awake, alert and oriented x 3. No acute distress. HEENT: Normocephalic, atraumatic. Pupils equal, round and reactive to light and accommodation. Extraocular muscles are intact. Anicteric sclera. Moist mucous membranes. Neck: No JVD. No bruit. Cardiovascular: Regular but fast. No S-4. Normal S-1 and S-2. No S-3. No murmurs, rubs or gallops. Pulmonary: Clear to auscultation bilaterally. No rales, rhonchi, or wheezing. Abdomen: Bowel sounds x 4, soft. No rebound, guarding or tenderness. No organomegaly. Extremities: No clubbing, cyanosis or edema. +2 pedal pulses bilaterally. Skin: Warm and dry. Results & Data Vital Signs (Past 12 Hours) Vital Signs Temp Pulse Pulse Resp BP Pulse Ox O2 Del Method 06/21/22 11:44 36.7 C 115 H 16 173/108 H 96 Room Air 06/21/22 07:53 36.6 C 117 H 14 158/99 H 97 Room Air 06/21/22 07:19 120 H
[2022-06-21] MEDS ORDERED: cloNIDine HCL 0.1 MG TAB PO ONE (16:02)
[2022-06-21] MEDS ORDERED: INSULIN HUMAN REGULAR PER UNIT 10 UNITS in SYRINGE 9.9 ML IV ONE (16:45)
--- NOTE | 2022-06-21 17:20 | Nephrology Progress Note ---
Date of Service June 21, 2022 Assessment & Plan (1) Hypertensive urgency: Plan: Goal blood pressure is MAP of about 100 for next hours/ day, assuming no evidence of acute end organ damage emerges which to-date is none; test and tox screen negative. May be harder to control on obligate high dose steroids for the urticaria. TTE & troponins reassuring. with mild hypokalemia and HTN, aldosteronism comes to mind and could be evaluated as OP. further s econdary HTN w/u not indicated at this time. While 36 years old is quite young to be diagnosed with hypertension, with her diabetes and obesity, I would not consider this premature hypertension. she will ultimately need KRYSTA/ARB > with current urticaria resolving defer this for now so no question/issue/concern for angioedema May well also need spironolactone but again will defer so that she can have aldosteronism screen if indicated at home Minimize or avoid clonidine due to rebound hypertension and tachycardia -Continue awake overnight monitor -cardiology note reviewed -increased labetalol to 300 bid to start this evening >started hctz first dose now 25 mg >started nifedipine XL 60 mg to start in am in lieu of short acting procardia > gave first 30 mg dose this PM -standing meds have hold parameter hold for MAP <110 > started hydralazine 20 mg prn MAP > 120 q4h > continue labetalol 10 mg IV prn MAP > 120 (second choice med if hydralazine not available) or HR > 125 q6h >note that her contraceptive can cause HTN as an adverse effect; black box warning of higher VTE risk w/ BMI > 30 also discussed w/ pt; advised her to consider alternative medication if appropriate (2) Sinus tachycardia: Plan: persistent, though has only had a few doses of labetalol; asymptomatic; TSH wnl -continue labetalol -no PE/ CTA PE protocol negative -? situational element Admission and Anticipated Discharge Date Admission Date: June 21, 2022 Subjective Continues to denies shortness of breath, chest pain, palpitations, edema, back pain or flank pain, new or worrisome voiding symptoms. Patient is noting some situational hypertension, with blood pressure spiking when other things going on in the room. Also newly diagnosed with diabetes this admission. Rash continues to improve. Has been using her control for about 3 years without issue that she's aware of. Review of Systems Review of Systems: All systems reviewed & are unremarkable except as noted in Subjective Physical Exam Constitutional: well developed, well nourished and cooperative; no acute distress Eyes: EOM intact bilaterally ENMT: Ears: no external ear abnormality Nose: no external nose abnormality Mouth: + dry oral mucous membranes Neck: no nuchal rigidity Respiratory: normal respiratory effort Auscultation: + diminished lung sounds Cardiovascular: Rate/Rhythm: + tachycardic Extremities: normal capillary refill; no edema Gastrointestinal (Abdomen): Inspection/Auscultation: normal bowel sounds Percussion/Palpation: abdomen soft; abdomen nontender Musculoskeletal: Extremities: strength 5/5 throughout Skin: + rash (faint urticarial lower half of face ) Psychiatric: Orientation: oriented x 3 Speech: normal rate/rhythm/volume of speech Results & Data Vital Signs (Past 12 Hours) Vital Signs Temp Pulse Pulse Resp BP Pulse Ox O2 Del Method 06/21/22 15:35 120 H 06/21/22 15:34 36.8 C 120 H 18 204/122 H 97 Room Air 06/21/22 11:44 36.7 C 115 H 16 173/108 H 96 Room Air 06/21/22 07:53 36.6 C 117 H 14 158/99 H 97 Room Air 06/21/22 07:19 120 H Laboratory Results 06/21/22 07:04 06/21/22 07:04
[2022-06-21] MEDS ORDERED: hydrALAZINE HCL 20 MG/ML VIAL IV PRN (17:37)
[2022-06-21] MEDS ORDERED: hydroCHLOROthiazide 25 MG TAB PO STA (17:50)
[2022-06-21] MEDS ORDERED: NIFEdipine EXTENDED REL 30 MG TABCR PO STA (17:51)
[2022-06-21] MEDS: LABETALOL HCL 300 MG TAB PO SCH (20:35)
[2022-06-22] MEDS: INSULIN ASPART PER UNIT CHARGE SC SCH ×3 (00:06→08:55)
[2022-06-22 07:03] LABS: Hematocrit (blood only) 39.5 % (37.0-47.0); Hemoglobin 13.9 g/dl (12.0-16.0); Mean Corpuscular Hemoglobin 31.4 pg (25.0-34.0); Mean Corpuscular Hgb Conc 35.2 g/dL (32.0-36.0); Mean Corpuscular Volume 89.4 fL (80.0-100.0); Mean Platelet Volume 10.7 fL (9.4-12.4); Platelet Count 222 K/uL (130-400); RDW Coefficient of Variation 12.3 % (11.5-14.5); RDW Standard Deviation 40.4 fL (36.4-46.3); Red Blood Count 4.42 M/uL (4.20-5.40); White Blood Count 14.87 K/ul (4.8-10.8)
[2022-06-22 07:32] LABS: BUN Creatinine Ratio 24.7 (10-20); Calcium 9.6 mg/dl (8.6-10.3); Creatinine Clr Calc Pharmacy 141.1 ml/min; Est GFR (African American) 116.8 ml/min; Est GFR (Non-African American) 100.7 ml/min; Magnesium 1.9 mg/dl (1.7-2.4); Phosphorus 5.2 mg/dl (2.5-4.9); Potassium 3.4 mmol/L (3.5-5.1)
[2022-06-22] MEDS: POTASSIUM CHLORIDE CRTAB 20 MEQ TABCR PO SCH (08:52)
[2022-06-22] MEDS: LABETALOL HCL 300 MG TAB PO SCH (08:52)
[2022-06-22] MEDS: CETIRIZINE HCL 10 MG TABLET PO SCH (08:53)
[2022-06-22] MEDS: ENOXAPARIN INJ 40 MG/0.4 ML SYR SQ SCH (08:54)
[2022-06-22] MEDS ORDERED: hydroCHLOROthiazide 25 MG TAB PO SCH (09:00)
[2022-06-22] MEDS ORDERED: NIFEdipine EXTENDED REL 30 MG TABCR PO SCH (09:00)
[2022-06-22] MEDS ORDERED: methylPREDNISolone 40 MG in SYRINGE 0 ML IV SCH (09:00)
[2022-06-22] MEDS ORDERED: LANTUS PER UNIT CHARGE SQ SCH (09:00)
[2022-06-22] MEDS: FAMOTIDINE 20 MG in SYRINGE 3 ML IV SCH (09:00)
--- NOTE | 2022-06-22 11:01 | Pharmacy Report ---
Pharmacy Glycemic Short Note 2 - Date of Service June 22, 2022 - Glycemic Short BSG Results (Last 24 hours): 06/21/22 06/21/22 06/21/22 11:21 16:11 20:09 Glucose POC Glucose 321 H* 301 H* 182 H 06/21/22 06/22/22 06/22/22 23:56 03:46 06:50 Glucose 175 H POC Glucose 176 H 167 H 06/22/22 07:05 Glucose POC Glucose 177 H OUTPATIENT ANTIDIABETIC REGIMEN: * New diagnosis - no previous meds * HbA1c: 9.1% (06/21/22) ASSESSMENT: 06/22: * Cindy received a total of 108 units of insulin yesterday, 35 units basal + 73 units bolus. BSGs were elevated: [phone] mg/dL. * Fasting BSG this AM was 177 mg/dL, improved. Ended up getting 30 additional units of Lantus with dinner yesterday. * Solu-Medrol dose has been decreased to 40 mg once daily today. * Will continue with 30 units of Lantus daily for now. * Received a 10 unit IV insulin bolus last evening as well. At that time, correction factor was tightened. * Will continue with current Novolog parameters. May need to tighten if postprandial hyperglycemia continues throughout today. 06/21: * 36 year old admitted with htn urgency. BSGs elevated on arrival, A1c indicating diabetes. No previous dx of diabetes per notes. Patient received total of 21 units of insulin yesterday, of which 5 units were basal insulin * Fasting elevated at 270 mg/dL - patient received solumedrol yesterday, continued today. Last BSG was >300 * Will add Lantus 25 units x 1 now in addition to the 5 units already this AM PLAN FOR INPATIENT GLYCEMIC CONTROL: * Basal insulin * Lantus 30 units SC daily * Bolus insulin * NovoLog per scale ACHS or Q6hrs while NPO * Goal Range: Low 110 mg/dL - High 140 mg/dL * Correction Factor: 12 mg/dL/unit * Nutritional / Prandial insulin per carb ratio of 1 unit per 4 grams CHO consumed
[2022-06-22] MEDS ORDERED: INSULIN ASPART PER UNIT CHARGE SC SCH (11:30)
--- NOTE | 2022-06-22 11:51 | Nephrology Progress Note ---
Date of Service June 22, 2022 Assessment & Plan Admission and Anticipated Discharge Date Admission Date: June 21, 2022 Subjective Assessment & Plan (1) Hypertensive urgency: Plan: BP is now acceptable for Discharge and further titration as outpt. Continue current meds for discharge. F/u with her PCP after discharge within 1 week. she will ultimately need KRYSTA/ARB. 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 BP is better now but still fluctuates. Review of Systems Review of Systems: All systems reviewed & are unremarkable except as noted in Subjective Physical Exam Constitutional: well developed, well nourished and cooperative; no acute distress Eyes: EOM intact bilaterally ENMT: Ears: no external ear abnormality Nose: no external nose abnormality Mouth: + dry oral mucous membranes Neck: no nuchal rigidity Respiratory: normal respiratory effort Auscultation: + diminished lung sounds Cardiovascular: Rate/Rhythm: + tachycardic Extremities: normal capillary refill; no edema Gastrointestinal (Abdomen): Inspection/Auscultation: normal bowel sounds Percussion/Palpation: abdomen soft; abdomen nontender Musculoskeletal: Extremities: strength 5/5 throughout Skin:L + rash (faint urticarial lower half of face ) Psychiatric: Orientation: oriented x 3 Speech: normal rate/rhythm/volume of speech Results & Data Vital Signs (Past 12 Hours) Vital Signs Temp Pulse Resp BP Pulse Ox O2 Del Method 06/22/22 07:05 36.8 C 97 H 19 149/102 H 97 Room Air 06/22/22 03:00 36.8 C 96 H 14 123/89 97 Room Air
--- NOTE | 2022-06-22 13:06 | Discharge Summary ---
Date of Service June 22, 2022 Admission HPI Per Admitting Provider Patient is 36-year-old female without significant past medical history presented to ER with complaint of rash to face. Patient states 2 weeks ago had sudden onset of rash and hives to face and neck. She had started a new face cream and thought it may be secondary to that. She was seen in urgent care at that time and was placed on prednisone 40 mg x 5 days, Pepcid, cetirizine. She states she slowly had resolution of facial rash. Patient reports 1 week ago was eating at a restaurant when had onset of tingling to her mouth. She took 1 Benadryl with resolution. Denies any other facial swelling, lip swelling, tongue swelling, dysphagia, shortness of breath, wheezing, nausea, vomiting, abdominal pain at the time. She thought maybe there was a cross contamination with shellfish as she has had similar reactions from shellfish in the past. She finished the prednisone course 6 days ago. Has not used the new facial cream. Last night started with some mild itching and rash to face. She took 2 Benadryl and went to bed. When she woke up this morning had increased rash to face and neck and her lips were swollen. She took a Benadryl this morning with improvement of lip swelling. Rash persists. Denies any significant pruritus or pain with rash. Reports her face feels "tight". Denies shortness of breath, wheezing, tongue swelling, dysphagia, dizziness. She is in town for concert at the [facility] today. Was seen at urgent care center this morning and was referred to ER. Denies any other new medications, OTC medications or supplements, or other skin products or new foods. Patient reports has an appointment with an garage door service technician next week in [facility]. Denies fever/chills, diaphoresis, N/V/D/C, JUAREZ, syncope, vision changes, neck pain, CP, SOB, orthopnea, palpitations, cough, sore throat, choking, otalgia, rhinorrhea, abdominal pain, paresthesias, weakness, extremity weakness, extremity edema, rashes, dysuria, urinary frequency, hematuria. In ER patient found to be tachycardic, hypertensive. She was given to L NSS, IV famotidine. High-sensitivity troponin: 23.9. Patient being admitted for further evaluation and observation. Admission Exam Per Admitting Provider General: no acute distress, overweight Head: normocephalic, atraumatic Eyes: PERRL, EOM's intact, conjunctiva non-injected, anicteric ENT: normal inspection external ears, nose, mucous membranes moist, no uvula edema, no tongue edema Face: +erythematous raised urticarial rash to forehead and nose, cheeks, chin, neck. Lips slightly edematous, dry and cracked Neck: supple, trachea midline Lungs: clear, no respiratory distress, no wheezing/rhonchi/rales CV: Tachycardia, rate 110, regular rhythm, no murmur, no pretibial edema Abd: Protuberant, normal BS, soft, non-tender Ext: no cyanosis, no calf tenderness Neuro: A&O x 3, no focal deficits noted, normal affect Skin: As above in face, otherwise warm, dry Principal Diagnosis Hypertensive urgency Urticaria Demand ischemia Newly diagnosed diabetes Obesity Discharge Exam GENERAL: Alert and oriented x3. NAD, on RA. Obesity Class III. HEENT: No pallor, no icterus. Pupils equal, round and reactive to light. Oral mucosa moist. Face: +erythematous raised urticarial rash to forehead and nose, cheeks, chin, neck--->improved to minimal. Lips swelling improved. NECK: No JVD, no neck masses. HEART: S1 and S2 heard. Regular rate and rhythm/tachycardia. No murmur, no gallop. RESPIRATORY SYSTEM: Normal AP diameter. No accessory muscle use. No wheezing, no crackles. ABDOMEN: Soft, bowel sounds present, nontender, no distention. CENTRAL NERVOUS SYSTEM: No facial droop. Speech is clear. Obeys simple commands. Moves extremities. EXTREMITIES: No edema, no erythema seen. Discharge Data Allergies Allergy/AdvReac Type Severity Reaction Status Date / Time shellfish derived Allergy mouth Verified 06/20/22 13:11 tingling Consultations 06/20/22 12:12 ED Decision to Admit Stat 06/20/22 12:59 Consult Cardiology Routine Consult Nephrology Routine Ordered Studies 06/20/22 18:05 CT angio chest PE protocol Urgent Diabetes Follow up Diabetes Follow-up Needed for HgbA1c >9%,Newly Diagnosed Diabetes Hospital Course (1) Hypertensive urgency: (2) Sinus tachycardia: (3) Urticaria: Plan 36-year-old female with no significant PMH presented to the ED 06/20 with complaint of rash to face. Patient had facial rash and lip swelling noted on 08 of June after applying new lotion to face [patient has already discarded the lotion after she got the first facial rash] and was treated with steroid/Benadryl at urgent care. The rash came back again (on 13 of June) along with lip swelling after she had some fried food outside [concern for contamination with shellfish, patient has allergy to surface]. she was again treated at urgent care. She again had reoccurrence of facial rash and lip swelling on 20 of June after she had fried foods outside. She was managed for the following: Hypertensive urgency: Sinus tachycardia: Elevated troponin/Demand ischemia: At presentation: BP 231/148, pulse 157. Troponin 23.9, flat trended. EKG with sinus tachycardia with rate 137, no acute ST or T changes noted. UA with trace blood and 2+ ketones [patient menstruating]. At presentation: Patient denied headache or dizziness or chest pain or shortness of breath. No prior diagnosis of hypertension and not on any home medication regarding same. 06/20 echo with EF of 60 to 65%, normal LV chamber size and wall thickness, no segmental left ventricular wall motion abnormalities. Cardiology and nephrology on board, appreciate recommendation. Patient discharged on current blood pressure medication, patient to maintain blood pressure measurement twice a day to maintain a log to take to PCP for ongoing management of her hypertension. Patient might need aldosteronism screening as an outpatient. Patient aware. Urticaria/hives: Rash to face and lip swelling started with application of new cream, then reappeared again after eating fried food outside twice [see above]. Of note, patient has allergies to shellfish. Continue with Solu-Medrol, famotidine, and Zyrtec. Will be discharged on those. EpiPen also prescribed. Significant improvement in her facial rash and lip swelling. States that she has appointment with garage door service technician next week in [place], [place] (near patient's home) - pt advised to keep up that appointment. Newly diagnosed diabetes: Patient with blood sugar 233 at presentation, A1c of 9.1. No prior diagnosis of diabetes. Appreciate medical educator and glycemic pharmacist recommendation. Patient prescribed supplies for glucose monitoring, metformin XR 500 Mg with evening meal and Rybelsus 3 Mg daily. Patient to follow-up with PCP office for referral to diabetic clinic and cut off machine operator for ongoing management of her diabetes. Patient agreeable to these medications and aware that she needs to measure her blood sugar/fingerstick 1-2 times a day and there will be an ongoing evaluation/changes in her diabetic medications. Obesity: BMI 43, counseled about weight loss/regular exercise/following healthy diet. DVT Prophylaxis: Lovenox Patient being discharged with following instruction: Follow-up with your primary care physician within a week time and likely you will need labs CBC/CMP/magnesium/phosphorus. For your hypertension, you have been started on various meds, use them as prescribed. Maintain blood pressure measurement twice a day and maintain a log so that you can take it to your primary care physician in your next visit for further evaluation/management of your hypertension. You might also need aldosteronism screen, coordinate with your PCP office. You might also need evaluation for starting you on a class of medication called ACEi/ARB after your urticaria/hives are resolved. Discuss with your PCP office. For your urticaria, You will be discharged on few days course of steroids/Zyrtec/famotidine/prn Benadryl. You will also be discharged on EpiPen which you will need to carry with you all the time. In the setting of an allergic reaction, you should use the epinephrine autoinjectorimmediatelyif you: Are having trouble breathing Feel tightness in the throat Feel lightheaded or think you might pass out After using First dose of epi pen, call 911 or emergency immediately. Maintain follow-up with your garage door service technician that has already been set. Be aware that a second dose may be needed if symptoms do not appear to be stabilizing or improving, and this may be given 5 to 15 minutes after the first dose. For your newly diagnosed diabetes: You will be started on metformin XR 500 Mg once daily with dinner and Rybelsus 3 Mg p.o. daily. You will need to maintain close follow-up with your outpatient provider for ongoing management of your diabetes and also for referral to medical educator as well as dietitian. Because of your diabetes, you will need ACEi/ARB as a part of your blood pressure management. As mentioned above, coordinate with your PCP office. You will be prescribed glucometer and testing kits for your fingerstick blood glucose. Check your blood sugar 1-2 times a day to help guide lifestyle and medication changes, maintain a log to take to your PCP office. Try to change the time you take fingerstick glucose measurements from day to day. If the prescription comes out expensive for you, you can get low-cost meter/supplies through [facility] or [employer]. Recommend healthy lifestyle changes/daily exercise regimen/diet modifications with a goal to attain healthy weight. Take your medications as prescribed. Please make sure that you are able to get your medications today by calling your pharmacy before you leave the hospital so that your treatment continuity is not broken. Home Health Attestation I certify that this patient is under my care and that I, or a physicians assistant director of public works working with me, had a face to-face encounter that meets the home health [id number] encounter requirements with this patient. The encounter with the patient was in whole, or in part, for the following medical condition, which is the primary reason for home health care (list medical condition): I certify that, based on my findings, the following services are medically necessary home health services: My clinical findings support the need for the above services because: Further, I certify that my clinical findings support that this patient is homebound (i.e. absences from home require considerable and taxing effort and are for medical reasons or catholic services or infrequently or of short duration when for other reasons) because: Certification for Home Health Services: Based on the above findings, I certify that this patient is confined to the home and needs intermittent longterm care, physical therapy and/or speech therapy or continues to need occupational therapy. The patient is under my care, and I have initiated the establishment of the plan of care. This patient will be followed by a physician who will periodically review the plan of care. Total Time Total Time Spent Total Time Spent (In Minutes): 60 Discharge Plan Discharge Items Patient Disposition: Home - Self-Care Reason For Visit: HTN Discharge Diagnosis: Hypertensive urgency Urticaria Demand ischemia Newly diagnosed diabetes Obesity Activity: Resume your previous activity Non-emergency contact: Primary Care Provider Call non-emergency contact if: you have any medication questions Follow-up/Referrals: PCP,NO [Primary Care Provider] - Diet: Carb Consistent or DM2, Heart Healthy and Low Sodium (2gm) Addtl Attending Provider Instructions: Follow-up with your primary care physician within a week time and likely you will need labs CBC/CMP/magnesium/phosphorus. For your hypertension, you have been started on various meds, use them as prescribed. Maintain blood pressure measurement twice a day and maintain a log so that you can take it to your primary care physician in your next visit for further evaluation/management of your hypertension. You might also need aldosteronism screen, coordinate with your PCP office. You might also need evaluation for starting you on a class of medication called ACEi/ARB after your urticaria/hives are resolved. Discuss with your PCP office. For your urticaria, You will be discharged on few days course of steroids/Zyrtec/famotidine/prn Benadryl. You will also be discharged on EpiPen which you will need to carry with you all the time. In the setting of an allergic reaction, you should use the epinephrine autoinjectorimmediatelyif you: Are having trouble breathing Feel tightness in the throat Feel lightheaded or think you might pass out After using First dose of epi pen, call 911 or emergency immediately. Maintain follow-up with your garage door service technician that has already been set. Be aware that a second dose may be needed if symptoms do not appear to be stabilizing or improving, and this may be given 5 to 15 minutes after the first dose. For your newly diagnosed diabetes: You will be started on metformin XR 500 Mg once daily with dinner and Rybelsus 3 Mg p.o. daily. You will need to maintain close follow-up with your outpatient provider for ongoing management of your diabetes and also for referral to medical educator as well as dietitian. Because of your diabetes, you will need ACEi/ARB as a part of your blood pressure management. As mentioned above, coordinate with your PCP office. You will be prescribed glucometer and testing kits for your fingerstick blood glucose. Check your blood sugar 1-2 times a day to help guide lifestyle and medication changes, maintain a log to take to your PCP office. Try to change the time you take fingerstick glucose measurements from day to day. If the prescription comes out expensive for you, you can get low-cost meter/supplies through [facility] or [employer] [employer]. Recommend healthy lifestyle changes/daily exercise regimen/diet modifications with a goal to attain healthy weight. Take your medications as prescribed. Please make sure that you are able to get your medications today by calling your pharmacy before you leave the hospital so that your treatment continuity is not broken. Pending Studies at Discharge: No Stand-Alone Forms: My [facility], Smoking Cessation Medications and DC Order Prescriptions: New cetirizine 10 mg Tablet 10 mg PO QAM 7 Days Qty: 7 0RF labetalol 300 mg Tablet 300 mg PO BID Qty: 60 0RF nifedipine [Procardia XL] 30 mg Tablet Extended Release 24hr 60 mg PO QAM Qty: 60 0RF hydrochlorothiazide 25 mg Tablet 25 mg PO QAM Qty: 30 0RF potassium chloride 20 mEq Tablet,Er Particles/Crystals 20 meq PO BID Qty: 60 0RF metformin 500 mg tablet extended release 24 hr 500 mg PO PM Qty: 30 0RF Rx Instructions: Every evening with meal. Rybelsus 3 mg tablet 3 mg PO DAILY Qty: 30 0RF (DME) blood-glucose meter [Traxeruch Ultra2 Meter] Kit See Rx Instructions .Route Qty: 1 0RF Rx Instructions: Use it 1-2 times per day (DME) [employer]Touch Ultra Test Strip See Rx Instructions .Route Qty: 100 0RF Rx Instructions: Use 1-2 times per day to check fingerstick glucose. (DME) lancets [[employer]rifyTouch Delica Lancets] 33 gauge misc See Rx Instructions .Route Qty: 100 0RF Rx Instructions: Use 1-2 times per day to check fingerstick glucose. famotidine 20 mg tablet 20 mg PO BID 7 Days Qty: 14 0RF methylprednisolone [Medrol (Benjamín)] 4 mg tablets,dose pack 4 mg PO UD Qty: 21 0RF epinephrine [Auvi-Q] 0.3 mg/0.3 mL auto-injector 0.3 mg IM UD PRN (Reason: anaphylaxis) Qty: 2 0RF Rx Instructions: For allergic reaction/angioedema/anaphylaxis - use first dose and if no symptoms improving use second dose in 5-15 minutes. Continued levonorgestrel-ethinyl estrad [Altavera (28)] 0.15-0.03 mg tablet 1 tab PO DAILY diphenhydramine HCl 25 mg Tablet 25 mg PO TID PRN (Reason: Allergies) Discharge Orders: Discharge Order (Routine); Ordered 06/22/22 Ordered By: Sonal Eubanks/Other Patient Handouts: How to Check Your Blood Sugar, Exercise: Why Fitness Matters, Diabetes: Meal Planning, Type 2 Diabetes Admission Data Admit Date/Time: 06/21/22 16:01 Attending Provider: Sonal Alvarado Admit Provider: Ronaldo Fuller Primary Care Provider: PCP,NO Other Providers: Ronadlo Fuller ; Tata Diaz ; Viktor Villa
[2022-06-22] MEDS ORDERED: INSULIN ASPART PER UNIT CHARGE SC ONE (13:56)
[2022-06-22] MEDS ORDERED: LANTUS PER UNIT CHARGE SQ ONE ×2 (13:56)
[2022-06-23] MEDS ORDERED: LANTUS PER UNIT CHARGE SQ SCH (09:00)
== END 2022-06-22 13:57 | disposition home or self-care (01) | DRG 305 ==
LOC: ED 10:00 → 2E 10:00 → SUATTDRO 12:55 → 2E 15:19